=== PATIENT | female | born 1985 | race Caucasian/White ===

== ENCOUNTER 2017-10-16 21:56 | Emergency (ER) | payer OTHER ==
--- NOTE | 2017-10-16 23:00 | NUR ---
CALLED IN LOBBY NO ANSWER
--- NOTE | 2017-10-16 23:16 | NUR ---
CALLED NO ANSWER IN LOBBY
== END 2017-10-16 23:19 | disposition left against medical advice (07) ==
LOC: ER 21:56
DX: Z53.21 Procedure and treatment not carried out due to patient leaving prior to being seen by health care provider (principal)